=== PATIENT | female | born 1985 | race Caucasian/White ===

== ENCOUNTER 2020-12-13 19:59 | Emergency (ER) | payer OTHER ==
[2020-12-13 21:53] VITALS: BP 134/98
[2020-12-13] MEDS ORDERED: IBUPROFEN 600 MG TAB PO ONE (22:34)
[2020-12-13] MEDS ORDERED: LIDOCAINE-MPF (1%) 10 MG/1 ML VIAL 5 ML INFILTRATI ONE (22:34)
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
--- NOTE | 2020-12-13 23:03 | XRay Report ---
Left hand radiograph, 3 views HISTORY: Pain COMPARISON: None FINDINGS: No acute fracture or malalignment. No significant arthritis. Mild soft tissue swelling of t he dorsum of the hand and wrist. No soft tissue gas or radiopaque foreign body. Signer Name: Kvng Cummings MD Signed: 12/13/2020 10:58 PM Workstation Name: [id number]
[2020-12-13 23:49] LABS: Bacteria,Urine 2+ /HPF (Negative); Bilirubin,Urine NEG (Negative); Blood,Urine NEG (Negative); Color,Urine Yellow (Yellow); Mucus,Urine FEW /HPF; Protein,Urine <15 mg/dL mg/dL (Negative); Urobilinogen,Urine < 2.0 mg/dL (<2.0)
[2020-12-13 23:57] LABS: HCG Qualitative,Urine Negative (Negative)
[2020-12-15] MEDS ORDERED: DEXTROSE 50% IN WATER (25GM) 50 ML SYRINGE IV ONE (22:37)
== END 2020-12-14 00:30 | disposition home or self-care (01) ==
LOC: ED 19:59
DX: T76.21XA Adult sexual abuse, suspected, initial encounter (principal); N76.0 Acute vaginitis; M79.641 Pain in right hand; Z98.890 Other specified postprocedural states
CPT/HCPCS: 73130; 81001; 81025; 87210; 96372; 99284; J0696

== ENCOUNTER 2021-04-05 19:00 | Emergency (ER) | payer SELFPAY ==
[2021-04-05 22:21] VITALS: BP 155/101
[2021-04-06 00:45] LABS: Bacteria,Urine 1+ /HPF (Negative); Bilirubin,Urine NEG (Negative); Blood,Urine NEG (Negative); Color,Urine Colorless (Yellow); Protein,Urine <15 mg/dL mg/dL (Negative); Urobilinogen,Urine < 2.0 mg/dL (<2.0)
[2021-04-06 00:46] LABS: HCG Qualitative,Urine Negative (Negative)
[2021-04-06 00:51] LABS: WBC,Urine < 1.0 /HPF (0.0-6.0)
== END 2021-04-06 01:00 | disposition left against medical advice (07) ==
LOC: ED 19:00
DX: L72.9 Follicular cyst of the skin and subcutaneous tissue, unspecified (principal)
CPT/HCPCS: 81001; 81025; 99282